=== PATIENT | female | born 1995 | race Caucasian/White ===

== ENCOUNTER → 2022-11-01 10:45 | Outpatient (CLI) | payer OTHER, SELFPAY ==
--- NOTE | ~2022-11-01 | CT_ITS ---
EXAMINATION: CT sinus wo con DATE: 11/01/2022 10:58 INDICATION: Chronic pansinusitis TECHNIQUE: Computed tomography (CT) of the paranasal sinuses was performed without intravenous contra st. The dose-length product (DLP) was 273.81 mGy-cm. Iterative reconstruction was used. COMPARISON: None FINDINGS: There is normal development and pneumatization of the paranasal sinuses. There is mild muco dayo thickening of the maxillary sinuses and posterior ethmoidal air cells The frontal and sphenoid si nuses are clear. The bilateral ostiomeatal complexes are patent. Visualized soft tissues are unremark able. There are 2 mm of leftward deviation of the nasal septum. IMPRESSION: 1. Mild maxillary and ethmoidal sinus disease. Reviewed, dictated and finalized at location L. [facility]
== END ==
PROVIDERS: PCP Internal Medicine; Visit Provider Otolaryngology
DX: J32.0 Chronic maxillary sinusitis (principal); J32.2 Chronic ethmoidal sinusitis
CPT/HCPCS: 70486